=== PATIENT | female | born 1955 | race Caucasian/White ===

== ENCOUNTER 2022-07-09 07:27 | Emergency (ER) | payer BC, MEDICAID ==
[~2022-07-09] VITALS: Ht 129.5 cm; Wt 56.0 kg
[2022-07-09] MEDS ORDERED: KETOROLAC 60MG/2ML VIAL IM ONE (08:00)
[2022-07-09] MEDS ORDERED: METOCLOPRAMIDE HCL 10MG TABLET PO ONE (08:00)
[2022-07-09] MEDS ORDERED: IBUP-2028 PO (08:03)
[2022-07-09] MEDS ORDERED: METO-293 PO (08:03)
[2022-07-09 08:22] VITALS: BP 161/98
== END 2022-07-09 08:24 | disposition home or self-care (01) ==
LOC: ER 07:27
DX: R51.9 Headache, unspecified (principal); R42 Dizziness and giddiness; R11.0 Nausea; E11.9 Type 2 diabetes mellitus without complications; I10 Essential (primary) hypertension
CPT/HCPCS: 96372; 99283; J1885; J8597